=== PATIENT | female | born 1990 | race African-American/Black ===

== ENCOUNTER 2019-01-02 12:27 | Emergency (ER) | payer OTHER ==
[~2019-01-02] VITALS: Ht 165.1 cm; Wt 54.4 kg
[2019-01-02] MEDS ORDERED: NKM (12:37)
[2019-01-02 12:48] VITALS: BP 113/84
[2019-01-02 13:09] LABS: APPEARANCE,URINE CLEAR; BILIRUBIN, URINE NEGATIVE (NEGATIVE); COLOR,URINE PALE YELLOW; GLUCOSE, URINE (UA) NEGATIVE (NEGATIVE); KETONES,URINE NEGATIVE (NEGATIVE); LEUKOCYTE ESTERASE ,URINE NEGATIVE (NEGATIVE); NITRITE,URINE NEGATIVE (NEGATIVE); PH,URINE 8 (4.5-8.0); PROTEIN,URINE NEGATIVE (NEGATIVE); UROBILINOGEN,URINE NORMAL MG/DL (0.0-1.0)
--- NOTE | 2019-01-02 13:20 | NUR ---
ED Nurse Note: pt presents to ED c/o lower back pain that she would rate a 6/10. pt has chronic back pain that she used to be prescribed narcotic pain meds for but her physician d/c the prescription. pt also states that her periods have been irregular and that her current one is 6 days late. pt reports taking OTC tests at home and they were both netgative.
[2019-01-02] MEDS ORDERED: Ketorolac 30mg Inj IM ONE (13:30)
[2019-01-02] MEDS ORDERED: Ketorolac 30mg Inj IV ONE (13:45)
[2019-01-02 13:59] LABS: BASOPHILS % (AUTO) 1.4 % (0.0-2.0); EOSINOPHILS % (AUTO) 2.9 % (0.0-3.0); HEMATOCRIT 41.9 % (37.0-47.0); HEMOGLOBIN 14.1 G/DL (12.0-16.0); LYMPHOCYTES % (AUTO) 46.9 % (20.0-45.0); MEAN CORPUSCULAR VOLUME 92 FL (80-99); MONOCYTES % (AUTO) 5.5 % (1.0-10.0); NEUTROPHILS % (AUTO) 43.3 % (45.0-75.0); PLATELET COUNT 235 K/UL (150-450); RED BLOOD COUNT 4.55 M/UL (4.20-5.40); RED CELL DISTRIBUTION WIDTH 11.3 % (11.6-14.8); WHITE BLOOD COUNT 4.1 K/UL (4.8-10.8)
[2019-01-02 14:07] LABS: ANION GAP 6 mmol/L (5-15); BLOOD UREA NITROGEN 6 mg/dL (7-18); CALCIUM 8.8 MG/DL (8.5-10.1); CARBON DIOXIDE 26 MMOL/L (21-32); CHLORIDE 106 MMOL/L (98-107); CREATININE 0.7 MG/DL (0.55-1.30); SODIUM 138 MMOL/L (136-145)
[2019-01-02 14:12] LABS: ALANINE AMINOTRANSFERASE 21 U/L (12-78); ALBUMIN 3.7 G/DL (3.4-5.0); ALBUMIN/GLOBULIN RATIO 1.1 (1.0-2.7); ALKALINE PHOSPHATASE 75 U/L (46-116); ASPARTATE AMINO TRANSFERASE 22 U/L (15-37); BILIRUBIN,TOTAL 0.6 MG/DL (0.2-1.0)
--- NOTE | 2019-01-02 14:24 | Emergency Room Report ---
History of Present Illness General Chief Complaint: Female Urogenital Problems Source: Patient Present Illness HPI 28-year-old female with history of chronic back pain with no known cause for several years here complaining of worsening back pain x3 days. Patient reports that she was originally diagnosed with chronic back pain in 2017 however denies any fall or injury. Patient has had muscle relaxants and ibuprofen in the past that has helped her with pain as well as physical therapy. Patient complains of 10 out of 10 pain in the lumbar region without radiation, denying saddle paresthesia, tingling and numbness. Denies urinary bowel incontinence. Patient has not taken medication for pain. Denies any recent injury or fall or heavy lifting. Also complains of irregular uterine bleeding x1 month. Reports that her last menstrual period was in November 2018 which lasted 12 days and clotting. Patient is sexually active without protection and control. Patient also reports that she is late on her. For 6 days and has already taken 2 tests at home that they have both been negative. Denies syncope, lightheadedness, abdominal pain, nausea vomiting, diarrhea and constipation. Denies fever and chills. Denies history of ovarian cyst and fibroids. Reports that having PCOS in the family is very common however she has never been diagnosed with PCOS. Reports that she has minor excess hair growth on her face. Allergies: Coded Allergies: No Known Allergies (Unverified , 01/02/19) Patient History Past Medical History: see triage record Past Surgical History: unable to obtain Pertinent Family History: none Last Menstrual Period: 11/30/18 Now: No Immunizations: UTD Reviewed Nursing Documentation: PMH: Agreed; PSxH: Agreed Nursing Documentation-PMH Past Medical History: No Stated History Review of Systems All Other Systems: negative except mentioned in HPI Physical Exam Vital Signs Date Time Temp Pulse Resp B/P (MAP) Pulse Ox O2 Delivery O2 Flow Rate FiO2 01/02/19 12:33 98.2 75 16 113/84 (94) 99 Room Air Sp02 EP Interpretation: reviewed, normal General Appearance: no apparent distress, alert, GCS 15, non-toxic Head: normocephalic, atraumatic Eyes: bilateral eye normal inspection, bilateral eye PERRL ENT: hearing grossly normal, normal pharynx, no angioedema, normal voice Neck: full range of motion, supple/symm/no masses Respiratory: chest non-tender, lungs clear, normal breath sounds, no rhonchi, no wheezing, speaking full sentences Cardiovascular #1: regular rate, rhythm, no edema, no murmur, normal capillary refill Cardiovascular #2: 2+ dorsalis pedis (R), 2+ dorsalis pedis (L) Gastrointestinal: normal bowel sounds, non tender, soft, no mass, non-distended , no guarding, no rebound Genitourinary: normal inspection, no CVA tenderness Musculoskeletal: back normal, digits/nails normal, gait/station normal, normal range of motion, non-tender, no calf tenderness, pelvis stable Neurologic: alert, oriented x3, responsive, motor strength/tone normal, sensory intact, speech normal Psychiatric: judgement/insight normal, memory normal, mood/affect normal, no suicidal/homicidal ideation Skin: no rash Lymphatic: no adenopathy Medical Decision Making PA Attestation All my diagnosis and treatment plans were reviewed ad discussed with my supervising physician Dr. Cole Diagnostic Impression: Primary Impression: Chronic back pain Additional Impression: Irregular uterine bleeding ER Course 28-year-old female with history of chronic back pain with no known cause for several years here complaining of worsening back pain x3 days. Patient reports that she was originally diagnosed with chronic back pain in 2017 however denies any fall or injury. Patient has had muscle relaxants and ibuprofen in the past that has helped her with pain as well as physical therapy. Patient complains of 10 out of 10 pain in the lumbar region without radiation, denying saddle paresthesia, tingling and numbness. Denies urinary bowel incontinence. Patient has not taken medication for pain. Denies any recent injury or fall or heavy lifting. Also complains of irregular uterine bleeding x1 month. Reports that her last menstrual period was in November 2018 which lasted 12 days and clotting. Patient is sexually active without protection and control. Patient also reports that she is late on her. For 6 days and has already taken 2 tests at home that they have both been negative. Denies syncope, lightheadedness, abdominal pain, nausea vomiting, diarrhea and constipation. Denies fever and chills. Denies history of ovarian cyst and fibroids. Reports that having PCOS in the family is very common however she has never been diagnosed with PCOS. Reports that she has minor excess hair growth on her face. Ddx considered but are not limited to: UTI, spontaneous , intermittent , complicated , ectopic , irregular uterine bleeding due to fibroids or ovarian cysts, chronic back pain Vital signs: are WNL, pt. is afebrile H&PE are most consistent with: Chronic back pain which is not any further imaging, irregular uterine bleeding ORDERS: UA, urine test, CBC, CMP, Robaxin, lidocaine patch, ibuprofen ED INTERVENTIONS: Tylenol, Toradol DISCHARGE: At this time pt. is stable for d/c to home. Will provide printed patient care instructions, and any necessary prescriptions. Care plan and follow up instructions have been discussed with the patient prior to discharge. I was advised to follow-up with her primary care provider for testing of female hormones as well as abdominal ultrasound if needed to rule out fibroids versus ovarian cysts at this time patient is being asymptomatic not not bleeding and no abdominal pain and no further emergent imaging or labs as needed. Patient agrees with the above treatment. Also advised her to follow- up with primary care physician for pain management referral to physical therapy Last Vital Signs Date Time Temp Pulse Resp B/P (MAP) Pulse Ox O2 Delivery O2 Flow Rate FiO2 01/02/19 13:52 98.3 01/02/19 12:48 16 113/84 99 Room Air 01/02/19 12:33 75 Disposition: HOME, SELF-CARE Condition: Stable Scripts Lidocaine Patch* (Lidoderm Patch*) 1 Each Adh..patch 1 PATCH TOPIC DAILY, #7 PATCH 0 Refills Patch(es) may remain in place for up to 12 hours in any 24-hour period. Prov: Lyndon Garcia 01/02/19 Ibuprofen (Ibu) 800 Mg Tablet 800 MG PO BID, #20 TAB Prov: Lyndon Garcia 01/02/19 Methocarbamol* (ROBAXIN-500*) 500 Mg Tablet 500 MG ORAL TID PRN for For Pain, #15 TAB 0 Refills Prov: Lyndon Garcia 01/02/19 Referrals: NON PHYSICIAN (PCP) Patient Instructions: Abnormal Uterine Bleeding, Chronic Back Pain Additional Instructions: Take medication as directed follow-up with your primary care physician if your symptoms of irregular bleeding continue since it has only been one episode of irregular bleeding you may wait and see if it has a recurrence he of repeated irregular bleeding. Possibility of uterine fibroids or ovarian cyst. Ultrasound may be recommended to be requested by your primary care physician. Avoid strenuous physical activity. Return to the emergency room if worsening symptoms Lyndon Garcia Jan 02, 2019 14:24
[2019-01-02] MEDS ORDERED: IBU800 MG PO (14:25)
[2019-01-02] MEDS ORDERED: LIDODERM700 M1 TOPIC (14:25)
[2019-01-02] MEDS ORDERED: ROBAXIN-500MG ORAL (14:25)
[2019-01-02 14:32] VITALS: BP 117/83
--- NOTE | 2019-01-02 14:32 | NUR ---
ER DISCHARGE NOTE: Patient is cleared to be discharged per ERMD, pt is aox4, on room air, with stable vital signs. pt was given dc and prescription instructions, pt was able to verbalize understanding, pt id band and iv site removed without complications. pt is able to ambulate with steady gait. pt took all belongings.
== END 2019-01-02 14:32 | disposition home or self-care (01) ==
LOC: EMR 13:19
DX: G89.29 Other chronic pain (principal); M54.9 Dorsalgia, unspecified; N93.9 Abnormal uterine and vaginal bleeding, unspecified
CPT/HCPCS: 36415; 80053; 81001; 81025; 85025; 96372; 96374; J1885; Z7502; 99284